=== PATIENT | female | born 1945 | race African-American/Black ===

== ENCOUNTER 2024-02-21 04:54 | Emergency (ER) | payer OTHER ==
[~2024-02-21] VITALS: Ht 162.6 cm; Wt 127.0 kg
[2024-02-21 04:57] VITALS: O2SAT 100
[2024-02-21 06:20] LABS: BASOPHILS % 0.7 % (0.0-2.0); DIFFERENTIAL COMMENT 0; EOSINOPHILS % 1.3 % (0.0-5.0); HEMATOCRIT. 40.8 % (36.0-48.0); HEMOGLOBIN. 12.7 g/dL (12.0-16.0); MEAN CORPUSCULAR HEMOGLOBIN 23.6 pg (28.0-32.0); MEAN CORPUSCULAR HGB CONC 31.1 g/dL (31.0-37.0); MEAN PLATELET VOLUME 7.8 fl (7.4-10.4); PLATELET 296 x1000/uL (130-400); RED BLOOD CELL COUNT 5.36 mill/uL (4.2-5.4); RED CELL DISTRIBUTION WIDTH 15.5 % (11.6-14.6); WHITE BLOOD COUNT 6.6 x1000/uL (4.5-11.0)
[2024-02-21] MEDS: METOCLOPRAMIDE HCL 10MG/2ML VIAL IV NR (06:27)
[2024-02-21 06:30] LABS: CHLORIDE 107 mEq/L (98-107); POTASSIUM 4.3 mEq/L (3.5-5.1); SODIUM 140 mEq/L (136-145)
[2024-02-21 06:31] LABS: CALCIUM 9.7 mg/dL (8.7-10.4); CARBON DIOXIDE 28 mEq/L (21-32)
[2024-02-21 06:36] LABS: CREATININE 0.8 mg/dL (0.6-1.0); GLUCOSE 127 mg/dL (70-105); UREA NITROGEN BLOOD 15 mg/dL (9-23)
[2024-02-21 06:38] LABS: ALANINE AMINOTRANSFERASE 21 IU/L (10-49); ALBUMIN 4.4 g/dL (3.2-4.8); ASPARTATE AMINOTRANSFERASE 20 IU/L (<34); BILIRUBIN DIRECT 0.2 mg/dL (<=3.0); BILIRUBIN TOTAL 0.8 mg/dL (0.1-1.0); PROTEIN TOTAL 6.9 g/dL (6.0-8.3)
[2024-02-21 06:47] LABS: PROTHROMBIN TIME 10.8 sec (9.6-11.0)
[2024-02-21 06:52] LABS: TROPONIN I HIGH SENSITIVITY < 4 ng/L (3.0-34)
[2024-02-21] MEDS: MECLIZINE 12.5MG TABLET PO NR (09:15)
[2024-02-21 12:47] LABS: CLARITY URINE CLEAR (CLEAR); COLOR URINE YELLOW (YELLOW); GLUCOSE URINE NEGATIVE (NEGATIVE); KETONES URINE NEGATIVE (NEGATIVE); LEUKOCYTE ESTERASE URINE NEGATIVE (NEGATIVE); NITRITE URINE NEGATIVE (NEGATIVE); OCCULT BLOOD URINE NEGATIVE (NEGATIVE); PROTEIN URINE NEGATIVE (NEGATIVE); SPECIFIC GRAVITY URINE 1.029 (1.005-1.030)
[2024-02-21] MEDS ORDERED: IOHEXOL-350 100 ML BOTTLE ONE (14:45)
[2024-02-21 16:00] VITALS: BP 125/68; PULSE 71; RESP 23; TEMP 36.66960; O2SAT 95
== END 2024-02-21 18:02 | disposition short-term general hospital (02) ==
LOC: ER 04:54 → EDBEDREQTM 13:54 → EDBEDREQ 13:54 → CANBEDREQ 14:04 → ER 18:02
DX: R42 Dizziness and giddiness (principal); I10 Essential (primary) hypertension
CPT/HCPCS: 99291; 70496; 96374; 71045; 80076; 80048; 81003; 83690; 85025; 85610; 84484; 36415; 70498; 93005; 70450; Q9967; J8597; J2765